=== PATIENT | female | born 1995 | race African-American/Black ===

== ENCOUNTER 2018-01-28 10:00 | Day surgery (SDC) | payer OTHER ==
[2018-01-28 10:33] VITALS: BMI 27.1
[2018-01-28] MEDS ORDERED: Iron Sucrose Complex 100 MG in Sodium Chloride 0.9% 100 ML IVPB SCH (11:29)
[2018-01-28] MEDS ORDERED: Acetaminophen 500 MG TAB PO SCH (11:30)
[2018-01-28] MEDS ORDERED: Sodium Chloride 0.9% 1,000 ML IV SCH (12:00)
--- NOTE | 2018-01-28 23:03 | PDOC.LDPN ---
Labor & Delivery Progress Note - Subjective Subjective: comfortable, no concerns - Objective Vital signs reviewed and normal: yes General: NAD, resting Uterine fundus: non tender SVE: Not done FHT: category 1, variability present - Assessment (1) Anemia affecting in third trimester Code(s): O99.013 - ANEMIA COMPLICATING , THIRD TRIMESTER Status: Acute Plan: continue plan of care (Iron infusion per protocol - tolerating well - D/C home after infusion complete)
== END 2018-01-28 14:59 | disposition home or self-care (01) ==
LOC: L&D/OP 10:00
PROVIDERS: ATTEND Family Medicine
DX: O99.013 Anemia complicating pregnancy, third trimester (principal); D64.9 Anemia, unspecified; Z79.899 Other long term (current) drug therapy; Z91.041 Radiographic dye allergy status
CPT/HCPCS: 96361; 96365; 96366; 99282; J1756; J7050

== ENCOUNTER 2018-02-27 01:19 | Inpatient (IN) | payer OTHER ==
[2018-02-27 01:45] VITALS: BMI 28.2
[2018-02-27] MEDS ORDERED: Penicillin G Potassium 5 MILL.UNITS VIAL ONE (01:56)
[2018-02-27] MEDS ORDERED: Ondansetron PF 4 MG/2 ML Vial IVP PRN ×2 (01:57→04:04)
[2018-02-27] MEDS ORDERED: Butorphanol Tartrate 1 MG/ML VIAL SLOW IVP PRN (01:57)
[2018-02-27] MEDS ORDERED: Acetaminophen 500 MG TAB PO PRN (01:57)
[2018-02-27] MEDS ORDERED: Promethazine HCl 25 MG/ML VIAL IM PRN ×2 (01:57→04:04)
[2018-02-27] MEDS ORDERED: Butorphanol Tartrate 1 MG/ML VIAL ONE (01:57)
[2018-02-27] MEDS ORDERED: NS w/ Oxytocin 10 units 500 ML IV SCH ×2 (02:00)
[2018-02-27] MEDS ORDERED: Penicillin G Potassium 5 MILL.UNITS in Sodium Chloride 0.9% 100 ML IVPB SCH (02:00)
[2018-02-27] MEDS ORDERED: Ibuprofen 800 MG TAB PO PRN (02:00)
[2018-02-27] MEDS ORDERED: Misoprostol 200 MCG TAB RC PRN (02:00)
[2018-02-27 02:10] LABS: Hemoglobin 11.8 g/dL (12.0-16.0); Mean Corpuscular HGB CONC 31.7 g/dL (32.0-36.0); Mean Corpuscular Hemoglobin 22.4 pg (27.0-31.0); Mean Corpuscular Volume 70.5 fL (78.0-98.0); Mean Platelet Volume 8.1 fL (7.4-10.4); Platelet Count 245 thou/uL (130-400); RBC Distribution Width 17.2 % (11.5-14.5); Red Blood Cell (RBC) Count 5.28 mill/uL (4.20-5.40); White Blood Cell (WBC) Count 8.7 thou/uL (4.8-10.8)
[2018-02-27] MEDS: Lactated Ringer's 1,000 ML IV SCH ×2 (02:15→04:49)
[2018-02-27 02:37] LABS: HBSAg Index 0.21 S/CO (0-0.99); Hep B Surf Ag Non-Reactive S/CO (NonReactive)
[2018-02-27] MEDS ORDERED: Fentanyl 4 mcg/Bup 0.1% Cadd 100 ML ONE (03:34)
[2018-02-27] MEDS ORDERED: diphenhydrAMINE 50 MG/ML VIAL IVP PRN (04:04)
[2018-02-27] MEDS ORDERED: Naloxone HCl 0.4 mg/ml Vial IVP PRN ×2 (04:04)
[2018-02-27] MEDS ORDERED: Acetaminophen 325 MG TAB PO PRN (04:04)
[2018-02-27] MEDS ORDERED: Eucerin (Mineral Oil/Petrolatum,White) 30 gm Jar TOP PRN (04:04)
[2018-02-27] MEDS ORDERED: Lactated Ringer's 500 ML IV PRN (04:04)
[2018-02-27] MEDS ORDERED: ePHEDrine/0.9% NaCl/PF SYRINGE 50 mg/10 ml SLOW IVP PRN (04:04)
[2018-02-27] MEDS ORDERED: Fentanyl 4 mcg/Bupivacaine 0.1% Cassette 100 ML EPIDURAL SCH (04:15)
[2018-02-27] MEDS ORDERED: Communication Order-Pharmacy FS SCH (04:15)
[2018-02-27] MEDS ORDERED: Penicillin G 2.5 MILL.units 2.5 MILL.UNITS in Premix Bag 1 BAG IVPB SCH (05:00)
[2018-02-27] MEDS ORDERED: Penicillin G Potassium 2.5 MILL.UNITS in Sodium Chloride 0.9% 100 ML IVPB SCH (05:00)
[2018-02-27] MEDS ORDERED: Penicillin G 2.5 MILL.units 50 ML ONE (05:03)
[2018-02-27 05:12] LABS: Syphilis Antibody Nonreactive (Nonreactive); Syphilis Antibody Index 0.07 S/CO (<1.00 Non-Reactive)
[2018-02-27] MEDS: NS / Oxytocin 40 units/1000ml 1,000 ML IV SCH ×2 (06:04→07:31)
[2018-02-27] MEDS ORDERED: NS / Oxytocin 40 units/1000ml 1,000 ML IV SCH (07:31)
[2018-02-27] MEDS ORDERED: Benzocaine/Menthol 20-0.5% 60 ML CAN TOP PRN (07:31)
[2018-02-27] MEDS ORDERED: Bisacodyl 10 MG SUPP PR PRN (07:31)
[2018-02-27] MEDS ORDERED: Ibuprofen 800 MG TAB PO SCH (07:31)
[2018-02-27] MEDS ORDERED: HYDROcodone/Acetaminophen 5/325 mg Tablet PO PRN (07:31)
[2018-02-27] MEDS ORDERED: Milk Of Magnesia 30 ML UDCUP PO PRN (07:31)
[2018-02-27] MEDS: Docusate Calcium (SURFAK) 240 MG CAP PO SCH ×2 (13:04→21:27)
[2018-02-27] MEDS: Ferrous Sulfate 325 MG TAB PO SCH ×2 (13:04→18:41)
[2018-02-27] MEDS: Ibuprofen 800 MG TAB PO SCH ×2 (13:04→21:27)
[2018-02-28] MEDS: Ibuprofen 800 MG TAB PO SCH ×3 (05:59→21:54)
[2018-02-28] MEDS: Ferrous Sulfate 325 MG TAB PO SCH ×2 (09:34→18:53)
[2018-02-28] MEDS: Docusate Calcium (SURFAK) 240 MG CAP PO SCH ×2 (09:34→21:54)
[2018-02-28] MEDS ORDERED: Bupivacaine/Epinephrine 0.25% 30 ML VIAL ONE (09:51)
--- NOTE | 2018-02-28 15:06 | PDOC.PP ---
Post Progress Note Post Day #: 1 Subjective: Doing well, no c/o, feeling good. PO intake tolerated: yes Flatus: yes Ambulation: yes Vital Signs (12 hours) Temp Pulse Resp BP Pulse Ox 02/28/18 09:00 97.8 F 60 20 119/71 98 02/28/18 03:40 97.9 F 57 L 16 109/61 98 Weight Weight 175 lb - Physical Examination General: NAD Cardiovascular: no m/r/g, RRR Respiratory: clear to auscultation bilaterally, non-labored breathing Abdominal: + bowel sounds, lochia, no distention, appropriately TTP Extremities: negative homans (B) Psychiatric: A&Ox3, normal affect Result Diagrams: 02/27/18 01:44 Additional Labs: Post Labs Blood Type O POSITIVE 02/27/18 01:44 Hep Bs Antigen Non-Reactive S/CO (NonReactive) 02/27/18 01:44 (1) Vaginal delivery Code(s): O80 - ENCOUNTER FOR FULL-TERM UNCOMPLICATED DELIVERY Status: Acute - Assessment/Plan Routine PP care D/C home tomorrow 03/01
[2018-03-01] MEDS: Ibuprofen 800 MG TAB PO SCH ×2 (06:14→13:26)
[2018-03-01] MEDS: Ferrous Sulfate 325 MG TAB PO SCH (08:28)
[2018-03-01] MEDS: Docusate Calcium (SURFAK) 240 MG CAP PO SCH (08:43)
[2018-03-01 09:34] VITALS: BP 118/70; TEMP 97.6
--- NOTE | 2018-03-02 04:18 | OP ---
DELIVERY SUMMARY DATE OF DELIVERY: 02/27/2018 PREOPERATIVE DIAGNOSIS: Term intrauterine in labor. POSTOPERATIVE DIAGNOSIS: Term intrauterine in labor. PROCEDURE PERFORMED: Normal spontaneous vaginal delivery and laceration repair. SURGEON: Wilbur Ramirez MD ANESTHESIA: Epidural. BRIEF DELIVERY SUMMARY: This is a 22-year-old, G2, now P2, who presented in active labor. She progr essed well to complete and pushing. She delivered a live male , head OA. Mouth and nares were bulb suctioned at the perineum. There was no nuchal cord. Shoulders and body easily followed and t he infant was placed on mother's abdomen. Apgars were 9 at 1 minute and 9 at 5 minutes. Plac enta delivered spontaneously and intact with a 3-vessel umbilical cord. There was a second-degree mi dline perineal laceration which was repaired in standard running fashion using 2-0 Vicryl suture unde r epidural anesthesia with excellent hemostasis. Mom and baby were left with the nurse in excellent condition. She is planning to bottle feed.
== END 2018-03-01 14:40 | disposition home or self-care (01) | DRG 807 ==
LOC: L&D/OP 01:19 → L&D 01:58 → 3SW 08:30
PROVIDERS: ADMIT Family Medicine; ATTEND Family Medicine
PROC: 10E0XZZ Delivery of Products of Conception, External Approach (ICD-10-PCS; principal; 2018-02-27)
PROC: 0KQM0ZZ Repair Perineum Muscle, Open Approach (ICD-10-PCS; 2018-02-27)
DX: O70.1 Second degree perineal laceration during delivery (principal); Z37.0 Single live birth; Z3A.39 39 weeks gestation of pregnancy
CPT/HCPCS: 51701; 51702; 85027; 86780; 86850; 86900; 86901; 87340; 99285; J0595; J2540

== ENCOUNTER → 2019-01-31 | Day surgery (SDC) | payer OTHER ==
[~2019-01-31] MED LIST: Acetaminophen 500 MG TAB PO PRN; FLU VACC QS2019-20(6MOS UP)/PF 60 MCG/0.5 ML SYRINGE IM ONE; Iron Sucrose Complex 500 MG in Sodium Chloride 0.9% 250 ML 250 ML IVPB SCH
[2019-01-31 15:32] VITALS: BMI 29.2
== END | disposition home or self-care (01) ==
LOC: L&D/OP 14:15
PROVIDERS: ATTEND Family Medicine
DX: O99.013 Anemia complicating pregnancy, third trimester (principal); D64.9 Anemia, unspecified; Z3A.35 35 weeks gestation of pregnancy; Z79.899 Other long term (current) drug therapy; Z91.041 Radiographic dye allergy status
CPT/HCPCS: J1756; J7050

== ENCOUNTER 2019-02-27 05:30 | Inpatient (IN) | payer OTHER ==
[2019-02-27] MEDS ORDERED: hydrALAZINE 20 MG/ML VIAL SLOW IVP PRN ×2 (10:11→12:48)
[2019-02-27] MEDS ORDERED: Misoprostol 200 MCG TAB PR PRN (10:11)
[2019-02-27] MEDS ORDERED: NS / Oxytocin 40 units/1000ml 1,000 ML IV PRN (10:11)
[2019-02-27] MEDS ORDERED: Ondansetron PF 4 MG/2 ML Vial IVP PRN ×2 (10:11→16:08)
[2019-02-27] MEDS ORDERED: Methylergonovine 0.2 MG/ML VIAL IM PRN (10:11)
[2019-02-27] MEDS ORDERED: HYDROcodone/Acetaminophen 5/325 mg Tablet PO PRN (10:11)
[2019-02-27] MEDS ORDERED: Promethazine HCl 25 MG/ML VIAL IM PRN ×2 (10:11→16:08)
[2019-02-27] MEDS ORDERED: Ibuprofen 800 MG TAB PO PRN (10:11)
[2019-02-27] MEDS ORDERED: Acetaminophen 500 MG TAB PO PRN (10:11)
[2019-02-27] MEDS ORDERED: Butorphanol Tartrate 1 MG/ML VIAL SLOW IVP PRN (10:11)
[2019-02-27] MEDS ORDERED: Lidocaine 1% (PF) 30 ML VIAL SC PRN (10:11)
[2019-02-27] MEDS ORDERED: Carboprost 250 MCG/ML AMP IM PRN (10:11)
[2019-02-27] MEDS ORDERED: Penicillin G Potassium 5 MILL.UNITS in Sodium Chloride 0.9% 100 ML IVPB SCH (10:15)
[2019-02-27] MEDS ORDERED: NS w/ Oxytocin 10 units 500 ML IV SCH (10:15)
[2019-02-27 13:06] VITALS: BMI 29.1
[2019-02-27 13:45] LABS: Hemoglobin 10.6 g/dL (12.0-16.0); Mean Corpuscular HGB CONC 33.3 g/dL (32.0-36.0); Mean Corpuscular Hemoglobin 24.5 pg (27.0-31.0); Mean Corpuscular Volume 73.6 fL (78.0-98.0); Mean Platelet Volume 9.9 fL (7.4-10.4); Platelet Count 192 thou/uL (130-400); RBC Distribution Width 14.6 % (11.5-14.5); Red Blood Cell (RBC) Count 4.31 mill/uL (4.20-5.40); White Blood Cell (WBC) Count 6.7 thou/uL (4.8-10.8)
--- NOTE | 2019-02-27 13:48 | PDOC.EVN ---
Event Note - Event Note Event Note: Pt seen and examined. FHT category I. SVE 2/60/-1. Cook's balloon placed without complication. Tolerated well. Uterine balloon inflated to 80ml, vaginal to 60ml. Pitocin started for IOL. Titrate per protocol.
--- NOTE | 2019-02-27 14:01 | PDOC.LDHP ---
Labor and Delivery H&P Chief complaint: scheduled induction HPI: Here for IOL at term. No complaints. Only irregular contractions felt. Current gestational age (weeks): 39 Due date: 03/04/19 Dating criteria: last menstrual period, first trimester ultrasound Grav: 3 Para: 2 Current complications: none Abnormal US findings: No Current medications: pre- vitamins Previous surgical history: none Allergies/Adverse Reactions: Allergies Allergy/AdvReac Type Severity Reaction Status Date / Time iodine Allergy Mild Rash Verified 02/27/19 13:04 Social history: none - Physical Exam Vital signs reviewed and normal: yes General: NAD, resting Heart: RRR Lungs: CTAB Abdomen: gravid Extremeties: no edema FHT: category 1 - Vaginal Exam cm dilated: 2 Effacement: 75% Station: -1 - OB Labs Blood type: O RH: positive Antibody Screen: negative HIV: negative RPR: negative HEPSAg: negative 1 hour GCT: negative GBS: positive Urine drug screen: not done Rubella: immune - Assessment L&D Assessment: elective induction at term - Plan Plan: admit to L&D, labor augmentation if indicated, GBS antibiotic prophylaxis , anesthesia consult for pain management
[2019-02-27] MEDS: Lactated Ringer's 1,000 ML IV SCH (14:16)
[2019-02-27 14:25] LABS: HBSAg Index 0.15 S/CO (0-0.99); Hep B Surf Ag Non-Reactive S/CO (NonReactive)
[2019-02-27 14:27] LABS: Syphilis Antibody Nonreactive (Nonreactive); Syphilis Antibody Index 0.07 S/CO (<1.00 Non-Reactive)
[2019-02-27] MEDS ORDERED: Fentanyl 4 mcg/Bup 0.1% Cadd 100 ML ONE (15:34)
[2019-02-27] MEDS ORDERED: Lidocaine 1.5%/Epinephrine 1:200,000 5 ML AMPUL IJ ONE (15:35)
[2019-02-27] MEDS ORDERED: Acetaminophen 325 MG TAB PO PRN (16:08)
[2019-02-27] MEDS ORDERED: diphenhydrAMINE 50 MG/ML VIAL IVP PRN (16:08)
[2019-02-27] MEDS ORDERED: Lactated Ringer's 500 ML IV PRN (16:08)
[2019-02-27] MEDS ORDERED: Naloxone HCl 0.4 mg/ml Vial IVP PRN ×2 (16:08)
[2019-02-27] MEDS ORDERED: ePHEDrine/0.9% NaCl/PF SYRINGE 50 mg/10 ml SLOW IVP PRN (16:08)
[2019-02-27] MEDS ORDERED: Communication Order-Pharmacy FS PRN (16:15)
[2019-02-27] MEDS ORDERED: Fentanyl 4 mcg/Bupivacaine 0.1% Cassette 100 ML EPIDURAL SCH (16:15)
[2019-02-27] MEDS ORDERED: NS / Oxytocin 40 units/1000ml 1,000 ML ONE (17:11)
[2019-02-27] MEDS ORDERED: Lidocaine 1% (PF) 30 ML VIAL ONE (17:11)
[2019-02-27] MEDS: Penicillin G 2.5 MILL.units 2.5 MILL.UNITS in Premix Bag 1 BAG IVPB SCH (18:10)
--- NOTE | 2019-02-27 21:15 | OP ---
DATE OF PROCEDURE: 02/27/2019 PREOPERATIVE DIAGNOSIS: Term . POSTOPERATIVE DIAGNOSIS: Term . PROCEDURE PERFORMED: Spontaneous vaginal delivery. DESCRIPTION OF PROCEDURE: This 23-year-old black female, G3, P2, taken to delivery in incomplete pushing. Prepped and draped sterilely. Delivered a baby girl, Apgars of 8 at 1 minute and 9 at 5 minutes. Baby did breathe and cry vigorously upon delivery. Cord was clamped and cut. No lacerations present. Delivery of the placenta, 3-vessel intact. Estimated blood loss 250 mL. Mother and baby did well. Job ID: [id number]
[2019-02-28] MEDS ORDERED: Benzocaine-Menthol 82.5 ML CAN TOP PRN (08:00)
[2019-02-28] MEDS ORDERED: Adacel (T-DAP) 0.5 ML SYRINGE IM ONE (08:00)
[2019-02-28] MEDS ORDERED: diphenhydrAMINE 25 MG CAP PO PRN (08:00)
[2019-02-28] MEDS ORDERED: Docusate Calcium (SURFAK) 240 MG CAP PO SCH (08:00)
[2019-02-28] MEDS ORDERED: NS / Oxytocin 40 units/1000ml 1,000 ML IV SCH ×2 (08:00)
[2019-02-28] MEDS ORDERED: Lanolin Ointment 7 GM TUBE TOP PRN (08:00)
[2019-02-28] MEDS ORDERED: Bisacodyl 10 MG SUPP PR PRN ×2 (08:00)
[2019-02-28] MEDS ORDERED: Milk Of Magnesia 30 ML UDCUP PO PRN ×2 (08:00)
[2019-02-28] MEDS ORDERED: Ferrous Sulfate 325 MG TAB PO SCH (08:00)
[2019-02-28] MEDS ORDERED: hydrALAZINE 20 MG/ML VIAL SLOW IVP PRN ×2 (08:00)
[2019-02-28] MEDS: Prenatal Vitamin 1 TAB PO SCH (08:25)
[2019-02-28] MEDS: Ferrous Sulfate 325 MG TAB PO SCH ×2 (08:25→17:29)
[2019-02-28] MEDS: Docusate Calcium (SURFAK) 240 MG CAP PO SCH ×2 (08:25→21:14)
[2019-02-28] MEDS: HYDROcodone/Acetaminophen 5/325 mg Tablet PO PRN (08:25)
[2019-02-28] MEDS: Ibuprofen 800 MG TAB PO SCH ×2 (13:52→21:15)
[2019-02-28] MEDS: Lactated Ringer's 1,000 ML IV SCH (19:26)
[2019-02-28] MEDS: Penicillin G 2.5 MILL.units 2.5 MILL.UNITS in Premix Bag 1 BAG IVPB SCH (19:26)
[2019-03-01] MEDS: HYDROcodone/Acetaminophen 5/325 mg Tablet PO PRN ×2 (00:20→07:49)
[2019-03-01] MEDS: Ibuprofen 800 MG TAB PO SCH (05:21)
[2019-03-01 08:06] VITALS: BP 112/66; TEMP 98.5
[2019-03-01] MEDS: Prenatal Vitamin 1 TAB PO SCH (08:45)
[2019-03-01] MEDS: Docusate Calcium (SURFAK) 240 MG CAP PO SCH (08:45)
[2019-03-01] MEDS: Ferrous Sulfate 325 MG TAB PO SCH (08:47)
== END 2019-03-01 12:50 | disposition home or self-care (01) | DRG 807 ==
LOC: L&D 12:38 → 3SW 02-28 15:37
PROVIDERS: ADMIT Family Medicine; ATTEND Family Medicine
PROC: 10E0XZZ Delivery of Products of Conception, External Approach (ICD-10-PCS; principal; 2019-02-27)
PROC: 3E033VJ Introduction of Other Hormone into Peripheral Vein, Percutaneous Approach (ICD-10-PCS; 2019-02-27)
PROC: 0U7C7ZZ Dilation of Cervix, Via Natural or Artificial Opening (ICD-10-PCS; 2019-02-27)
DX: O99.824 Streptococcus B carrier state complicating childbirth (principal); Z37.0 Single live birth; Z3A.39 39 weeks gestation of pregnancy
CPT/HCPCS: 36415; 51702; 85027; 86780; 86850; 86900; 86901; 87340; J2001; J2540; J2590; J3490

== ENCOUNTER 2019-09-16 19:54 | Emergency (ER) | payer OTHER, SELFPAY ==
--- NOTE | 2019-09-16 20:55 | RAD ---
Exam: Right first toe 3 views HISTORY: Dropped glass on foot. Laceration. FINDINGS: No fracture, cortical irregularity or periosteal reaction. Preserved joint spaces. No radio paque foreign body. IMPRESSION: No fracture or radiopaque foreign body.
== END 2019-09-16 21:45 | disposition home or self-care (01) ==
LOC: ERS 19:54
DX: S90.211A Contusion of right great toe with damage to nail, initial encounter (principal); W25.XXXA Contact with sharp glass, initial encounter
CPT/HCPCS: 11740

== ENCOUNTER 2021-02-05 20:44 | Emergency (ER) | payer MEDICAID, SELFPAY ==
[2021-02-05] MEDS ORDERED: Ketorolac Tromethamine 30 MG/ML VIAL ONE (21:49)
== END 2021-02-05 22:05 | disposition home or self-care (01) ==
LOC: ERS 20:44
DX: K03.81 Cracked tooth (principal)
CPT/HCPCS: 96372; 99282; J1885